=== PATIENT | female | born 1950 | race Caucasian/White ===

== ENCOUNTER 2016-03-26 07:52 | Emergency (ER) | payer MEDICARE ==
[2012-12-09 08:01] VITALS: BMI 28.1
[~2016-03-26 07:52] MED LIST: ASPIRIN325 MG PO; CELEXA20 MG PO; NORCO 10/325 TA1 TA1 PO; POTASSIUM99 M1 PO; PRINIVIL20 MG PO; ULTRAM50 MG PO; VITAMIN D5000 UNIT PO
[2016-03-26 09:16] LABS: BASOPHILS 0.2 % (0.0-2.0); EOSINOPHILS 1.9 % (0-7); HEMATOCRIT 42.8 % (36.0-48.0); HEMOGLOBIN 13.8 g/dL (12-16); IMMATURE GRANULOCYTES 0.3 % (0-5); LYMPHOCYTES 24.2 % (15-50); MCH 29.3 pg (26.0-34.0); MCHC 32.2 g/dL (31.0-37.0); MCV 90.9 fL (80.0-100.0); MONOCYTES 7.9 % (2-11); NEUTROPHILS 65.5 % (40-80); PLATELET COUNT 345 10x3/uL (130-400); RBC 4.71 10x6/uL (4.00-5.40); RDW 14.1 % (11.5-14.5); WBC 13.1 10x3/uL (4.8-10.8)
[2016-03-26 09:21] LABS: ALBUMIN 4.1 g/dL (3.4-5.0); ALKALINE PHOSPHATASE 111 U/L (46-116); ALT (SGPT) 29 U/L (10-68); BILIRUBIN - TOTAL 0.37 mg/dL (0.2-1.3); CALC OSMOLALITY 279 mosm/kg (275-300); CALCIUM 9.5 mg/dL (8.5-10.1); CARBON DIOXIDE 31.8 mmol/L (21.0-32.0); CHLORIDE - SERUM 101 mmol/L (98-107); CREATININE - SERUM 0.8 mg/dL (0.6-1.3); GLUCOSE 110 mg/dL (74-106); POTASSIUM - SERUM 4.3 mmol/L (3.5-5.1); PROTEIN - SERUM 8.5 g/dL (6.4-8.2); SODIUM 138 mmol/L (136-145); UREA NITROGEN 22 mg/dL (7-18); eGFR NON AFRICAN AMERICAN 76 mL/min (90-120)
[2016-03-26 09:25] LABS: TROPONIN-I < 0.017 ng/mL (0.000-0.060)
== END 2016-03-26 13:10 | disposition home or self-care (01) ==
LOC: D.ER 07:52
PROVIDERS: Emergency Medicine
DX: M25.512 Pain in left shoulder (principal); M54.2 Cervicalgia

== ENCOUNTER → 2018-07-07 13:35 | Outpatient (CLI) | payer MEDICARE, MEDICAID | END | disposition home or self-care (01) | LOC: D.MRI 13:35 | DX: M25.562 Pain in left knee (principal) ==

== ENCOUNTER 2018-07-26 05:00 | Day surgery (SDC) | payer MEDICARE, MEDICAID ==
[2018-07-25 15:14] LABS: HEMATOCRIT 39.3 % (36.0-48.0); HEMOGLOBIN 13.3 g/dL (12-16); MCH 29.8 pg (26.0-34.0); MCHC 33.8 g/dL (31.0-37.0); MCV 88.1 fL (80.0-100.0); MEAN PLATELET VOLUME 8.7 fL (7.4-10.4); RBC 4.46 10x6/uL (4.00-5.40); RDW 14.7 % (11.5-14.5); WBC 10.7 10x3/uL (4.8-10.8)
[2018-07-25 15:31] LABS: CALC OSMOLALITY 280 mosm/kg (275-300); CALCIUM 9.2 mg/dL (8.5-10.1); CARBON DIOXIDE 30.1 mmol/L (21.0-32.0); CHLORIDE - SERUM 101 mmol/L (98-107); CREATININE - SERUM 0.6 mg/dL (0.6-1.3); GLUCOSE 112 mg/dL (74-106); SODIUM 141 mmol/L (136-145); UREA NITROGEN 10 mg/dL (7-18); eGFR NON AFRICAN AMERICAN > 90 mL/min (90-120)
[~2018-07-26] VITALS: Ht 172.7 cm; Wt 86.2 kg
[~2018-07-26 05:00] MED LIST changes: -CELEXA20 MG PO; +CELEXA40 MG PO; +FLUOROMETHOLONE5 ML RIGHT EYE; +LISINOPRIL-HCT1 EAC4 PO; -PRINIVIL20 MG PO; +XALATAN 0.0052.5 ML RIGHT EYE
[2018-07-26 05:42] VITALS: BP 138/71; Ht 172.7 cm; Wt 86.2 kg
[2018-07-26] MEDS ORDERED: PERCOCET 10-321 EAC1 PO (07:32)
--- NOTE | 2018-07-26 10:50 | NUR ---
1015 PT NEEDS TO GO TO BATHROOM. IV DC'D. CATHETER INTACT. NO BLEEDING AT SITE. BANDAID APPLIED. 1020 PT HERE TO GIVE WBAT TRAINING WITH WALKER. ASSISTED PT TO BATHROOM FOR PT TO VOID. 1035 WALKER DELIVERED TO PT'S ROOM FROM [facility]. PT SIGNING PAPERS.
--- NOTE | 2018-07-26 10:53 | NUR ---
1045 YUNIEL/PT WAS GETTING PAIN RELIEF AFTER PEROCET AND PAIN HAD BEEN REDUCED TO A 5. AFTER GETTING UP WITH PT THE PAIN WENT BACK TO 7 BUT PT STATES IT IS TOLERABLE AND IS READY TO GO HOME AND GET IN HER BED. PT HAS A GOOD UNDERSTANDING OF HOW TO USE WALKER. TOLERATED PERCOCET WITHOUT ANY NAUSEA OR VOMITING.
--- NOTE | 2018-07-26 10:57 | OP ---
PATIENT NAME: CLEO YBARRA MEDICAL RECORD: [id number] :51 LOCATION:[facility] ADMISSION DATE: SURGEON: KRISHNA IKNNEY DO DATE OF OPERATION: 07/26/2018 PROCEDURE PERFORMED: Left knee arthroscopy with partial lateral meniscectomy. PREOPERATIVE DIAGNOSIS: Left knee lateral meniscal tear. 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 INDICATIONS: Ms. Ybarra is a 67-year-old female who presented to my office with an MRI with symptoms of lateral meniscal tear, joint line tenderness and a positive Carlos's. MRI showed a lateral meniscal tear as well as a lateral retinaculum tear after a twisting injury. She was informed of the risks of the procedure including infection, bleeding, damage to nerves and vessels, need for further surgery, due to her age she probably had some chondromalacia although we would trim out the meniscal tear and see if that relieves her symptoms. She was okay with that risk and knowing that we may not be able to completely resolve her pain and signed the consent. SURGEON: Krishna Kinney DO DESCRIPTION OF PROCEDURE: The patient was taken to the operating suite, laid in supine position, given general anesthetic, given 2 grams Ancef preoperatively and LMA was placed. Left lower extremity was prepped and draped in sterile fashion. Timeout was performed and everyone was in agreeance with the correct side, site, patient, and procedure. The procedure was then began with the knee flexed injecting 2.5 mL of 0.25% Marcaine with epinephrine into each of the proposed portal sites anterolateral and anteromedial. A 11-blade scalpel was then used to establish the lateral portal. Trocar was entered into the suprapatellar pouch, was inspected, as well as the medial and lateral gutters, no loose bodies were seen in it. The knee was flexed down. Medial compartment was entered and the medial portal was established with an 18-gauge spinal needle and 11-blade scalpel. The probe was then brought in. The grade IV chondromalacia was seen on the medial femoral condyle and the medial meniscus was probed. No tears were seen in it. Same as the ACL was probed, in good position, very taut. The knee was then [id number]'ed and the lateral meniscal tear was seen right in the middle aspect of the inner portion of the lateral meniscus was noted. The shaver was brought in and trimmed out of this tear back to a stable position. This was probed and the meniscus seemed to be in stable position. Then, the suprapatellar pouch was entered again, some of the synovium was removed at that time and the patella seemed to track well in the trochlea. The water was turned off. Suction was turned on. Excess fluid was removed. The scope portals were closed with 4-0 Monocryl in an inverted interrupted fashion. Steri-Strips, Adaptic, 4 x 4's, ABD, Webril, Karel wrap and ALEX hose stocking was placed up to the knee. The patient was awakened and taken to recovery in stable condition. ESTIMATED BLOOD LOSS: Minimal. COMPLICATIONS: None. 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
== END 2018-07-26 10:50 | disposition home or self-care (01) ==
LOC: D.OPS 05:00 → D.PAN 07:00 → D.OPS 07:00 → D.PAN 09:00 → D.OPS 09:00
PROVIDERS: Anesthesiology; ATTEND Orthopaedic Surgery
DX: S83.282A Other tear of lateral meniscus, current injury, left knee, initial encounter (principal); X50.1XXA Overexertion from prolonged static or awkward postures, initial encounter; Z01.812 Encounter for preprocedural laboratory examination